=== PATIENT | male | born 1950 | race Caucasian/White ===

== ENCOUNTER 2018-03-22 06:43 | Day surgery (SDC) | payer BC, MEDICARE ==
[2018-03-20 12:09] VITALS: BMI 38.7
[~2018-03-22 06:43] MED LIST: LACTATED RINGERS 1,000 ML IV SCH; LIDOCAINE 1% 20 ML VIAL (10MG/ML) FOR IV START INTRADERMA PRN
[2018-03-22] MEDS ORDERED: LACTATED RINGERS 1,000 ML IV ONE (07:06)
[2018-03-22 07:13] VITALS: TEMP 97.5
[2018-03-22 07:23] LABS: Glucose,Whole Blood 131 mg/dL (75-99)
[2018-03-22] MEDS ORDERED: PROPOFOL 10 MG/ML 20 ML VIAL IV ONE (08:15)
[2018-03-22] MEDS ORDERED: LIDOCAINE 1% INJ 10MG/ML (20 ML MDV) ONE (08:15)
--- NOTE | 2018-03-22 08:59 | P.PCN ---
Date of Procedure: 03/22/18 Procedure(s) Performed: Procedure: Colonoscopy and polypectomy. Preoperative diagnosis: Screening for neoplasia. Postoperative diagnosis: 1. Diverticulosis with no evidence of acute diverticulitis or strictures. 2. Multiple polyps snared but no large polyps or cancer. Preparation: HalfLytely prep. Sedation: Was provided by anesthesia. Brief clinical history: The patient is a 67-year-old male who is scheduled for this evaluation for screening for neoplasia. He had a prior exam more than 10 years ago. He believes he had couple polyps removed at that time. The patient has no abdominal complaints, bleeding or anemia. Procedure: With the patient on his left lateral decubitus position and after informed consent and adequate sedation, the perianal area was inspected and it did not show any fissures or fistulas. There were no masses felt on digital rectal examination. The Olympus CF H190L video colonoscope was then inserted in the rectum in the usual fashion and advanced to the cecum. There were multiple diverticular orifices seen scattered along the length of the bowel mostly on the left side with no evidence of acute diverticulitis or strictures. Multiple polyps were noted and were snared and retrieved by suction. One around the hepatic flexure, four around the splenic flexure and 3 in the sigmoid. There were no large polyps or cancer. I retroflexed the endoscope in the rectum before the endoscope was withdrawn. The patient tolerated the procedure well. Plan: The patient was reassured. Discussed dietary measures. I am recommending repeat exam in 3-5 years. He will follow up with you as planned.
[2018-03-22 09:37] VITALS: BP 162/98; PULSE 66; RESP 15
== END 2018-03-22 09:57 | disposition home or self-care (01) ==
LOC: ORWHC2ENDO 06:43
DX: Z12.11 Encounter for screening for malignant neoplasm of colon (principal); D12.3 Benign neoplasm of transverse colon; D12.5 Benign neoplasm of sigmoid colon; E11.9 Type 2 diabetes mellitus without complications; I10 Essential (primary) hypertension; E78.5 Hyperlipidemia, unspecified; N40.0 Benign prostatic hyperplasia without lower urinary tract symptoms; Z79.899 Other long term (current) drug therapy; Z79.84 Long term (current) use of oral hypoglycemic drugs
CPT/HCPCS: 88305; 45385; J2001; J2704

== ENCOUNTER 2024-05-02 11:28 | Day surgery (SDC) | payer MEDICARE ==
--- NOTE | 2024-04-28 19:37 | P.GSHP ---
History of Present Illness H&P Date: 04/28/24 Chief Complaint: Prostate cancer The patient is a 73-year-old white male who underwent a TURP in March 2023, revealing [place] 6 prostate cancer. He chose to proceed with active surveillance. His PSA level david to 3.60 in January 2024. He underwent a prostate ultrasound with biopsies, revealing 2 positive biopsies, [place] 6 and Herman 7 (3+4). His Prolaris molecular score was favorable. He has significant intraprostatic scarring as a result of a laser vaporization of the prostate procedure performed in 2015, and is thus felt to be a poor candidate for a robotic prostatectomy. He has elected to be treated with IMRT and now comes for SpaceOAR implant. - Cardiovascular Cardiovascular: Reports high blood pressure - Gastrointestinal Gastrointestinal: Reports diarrhea - Genitourinary (Male) Genitourinary: Reports nocturia Past Medical History Past Medical History: Diabetes Mellitus, Hyperlipidemia, Hypertension, Prostate Disorder History of Any Multi-Drug Resistant Organisms: None Reported Past Surgical History: Heart Catheterization, Orthopedic Surgery, Prostate Surgery Additional Past Surgical History / Comment(s): COLONSCOPY. LT KNEE SCOPE Past Anesthesia/Blood Transfusion Reactions: No Reported Reaction Past Psychological History: No Psychological Hx Reported Past Alcohol Use History: Daily Additional Past Alcohol Use History / Comment(s): 2-3 [employer] Past Drug Use History: None Reported - Past Family History Mother Family Medical History: No Reported History Medications and Allergies Home Medications Medication Instructions Recorded Confirmed Type Tamsulosin [Flomax] 0.8 tab PO HS 09/17/15 03/22/18 History metFORMIN HCL [Glucophage] 1 tab PO BID 09/17/15 03/22/18 History Atorvastatin [Lipitor] 20 mg PO DAILY 03/20/18 03/22/18 History Loratadine [Claritin] 10 mg PO DAILY 03/20/18 03/22/18 History Metoprolol Tartrate [Lopressor] 50 mg PO BID 03/20/18 03/22/18 History Allergies Allergy/AdvReac Type Severity Reaction Status Date / Time No Known Allergies Allergy Verified 03/22/18 07:15 Surgical - Exam - General well developed, well nourished, no distress - Respiratory normal respiratory effort - Genitourinary normal penis with no external lesions, testicles non-tender - Rectum Rectum: normal sphincter tone, no masses, other (Prostate normal size and consistency) - Psychiatric oriented to time, oriented to person, oriented to place, speech is normal, memory intact Assessment and Plan (1) Malignant neoplasm of prostate Status: Acute Code(s): C61 - MALIGNANT NEOPLASM OF PROSTATE SNOMED Code(s): 731145054 Plan: The SpaceOar implant has been reviewed in detail with the patient. He understands that the rationale for this is to create separation between the prostate and rectum, thus reducing the risk of radiation proctitis. The material begins to breakdown 12-13 weeks following implant, and is reabsorbed by the body. Risks include anesthesia, bleeding, infection, and perineal discomfort. He understands that if the rectal wall is perforated the procedure will need to be aborted.
[2024-04-29 12:54] VITALS: BMI 39.5
[~2024-05-02 11:28] MED LIST changes: +LIDOCAINE 1% (10MG/ML) FOR IV START INTRADERMA PRN; -LIDOCAINE 1% 20 ML VIAL (10MG/ML) FOR IV START INTRADERMA PRN
[2024-05-02 12:01] VITALS: TEMP 97.7
[2024-05-02] MEDS: IV FLUID CONTINUATION 1,000 ML IV ONE (12:11)
[2024-05-02] MEDS: ONDANSETRON 4 MG/2 ML VIAL IVP ONE (12:15)
[2024-05-02] MEDS: DEXAMETHASONE SOD PHOSPHATE 4 MG/ML 1 ML VIAL IV ONE (12:16)
[2024-05-02 12:21] LABS: Glucose,Whole Blood 128 mg/dL (70-110)
[2024-05-02] MEDS: LIDOCAINE 2% INJ 20 MG/ML SQ ONE ×2 (14:29→14:43)
[2024-05-02] MEDS ORDERED: LIDOCAINE 1% INJ 10MG/ML (20 ML MDV) ONE (14:29)
[2024-05-02] MEDS ORDERED: PROPOFOL 10 MG/ML 20 ML VIAL IV ONE (14:29)
[2024-05-02] MEDS ORDERED: MIDAZOLAM 2 MG/2 ML VIAL ONE (14:29)
[2024-05-02] MEDS ORDERED: fentaNYL (PF) 50 MCG/ML 2 ML AMP ONE (14:29)
--- NOTE | 2024-05-02 14:50 | P.OP ---
Date of Procedure: 05/02/24 Preoperative Diagnosis: Adenocarcinoma of the prostate Postoperative Diagnosis: Same Procedure(s) Performed: SpaceOAR implant Anesthesia: MAC Surgeon: Cruz Ortiz Estimated Blood Loss (ml): 5 IV fluids (ml): 200 Pathology: none sent Condition: stable Disposition: PACU Indications for Procedure: The patient is a 73-year-old white male who underwent a TURP in March 2023, revealing [place] 6 prostate cancer. He chose to proceed with active surveillan ce. His PSA level david to 3.60 in January 2024. He underwent a prostate ultrasound with biopsies, revealing 2 positive biopsies, [place] 6 and [place] 7 (3+4). His Prolaris molecular score was favorable. He has significant intraprostatic scarring as a result of a laser vaporization of the prostate procedure performed in 2015, and is thus felt to be a poor candidate for a robotic prostatectomy. He has elected to be treated with IMRT and now comes for SpaceOAR implant. Operative Findings: Over 1 cm separation created between prostate and rectum. Description of Procedure: The patient was taken to the operating room and placed in the dorsolithotomy position, with his legs supported in Kenneth stirrups. The external genitalia was prepped and draped sterilely. The [place] transrectal ultrasound probe was placed intrarectally. The prostate was imaged. The probe was then placed within the stabilizing stand. A spinal needle was advanced under ultrasonic guidance to the level of the urogenital diaphragm, and lidocaine was used to infiltrate the tissues as the needle was withdrawn. Next, the SpaceOAR needle was passed through the midline of the perineum, 1-2 cm anterior to the anal opening. The needle was slowly advanced under ultrasonic guidance until the needle tip was located within the fat plane between the prostate and rectum, at the level of the mid prostate gland. The needle was confirmed to be midline on the axial imaging. A small amount of normal saline was injected for hydrodissection. Next, the SpaceOAR components were mixed and loaded into the Y connector per protocol. The Y connector was then connected to the needle, and the components were injected slowly over a course of approximately 12 seconds. A total of 10 ml was injected. Significant distance was created between the prostate and rectum, as desired. It should be noted that at no point was there any concern of rectal perforation. The needle was withdrawn, as well as the transrectal ultrasound probe, and the procedure was terminated. The patient tolerated the procedure well and was taken to the recovery room in stable condition.
[2024-05-02 15:57] VITALS: RESP 16
[2024-05-02] MEDS: METOPROLOL TARTRATE 5 MG/5 ML VIAL IVP STA (15:58)
[2024-05-02 16:31] VITALS: BP 142/91; PULSE 73
== END 2024-05-02 16:42 | disposition home or self-care (01) ==
LOC: OR 11:28
PROVIDERS: ATTEND Urology
DX: C61 Malignant neoplasm of prostate (principal); R19.7 Diarrhea, unspecified; R35.1 Nocturia; E11.9 Type 2 diabetes mellitus without complications; I10 Essential (primary) hypertension; E78.5 Hyperlipidemia, unspecified; J30.1 Allergic rhinitis due to pollen; Z79.84 Long term (current) use of oral hypoglycemic drugs; Z79.02 Long term (current) use of antithrombotics/antiplatelets; Z79.899 Other long term (current) drug therapy
CPT/HCPCS: 55874; C1889; J2250; J1100; J0690; J2405; J2003 ×2; J3010; J2704

== ENCOUNTER → 2024-08-13 | Outpatient (CLI) | payer MEDICARE | END | disposition home or self-care (01) | LOC: LABWHC1 11:10 | PROVIDERS: ATTEND Radiology Radiation Oncology | DX: C61 Malignant neoplasm of prostate (principal) | CPT/HCPCS: 36415; 84153 ==